=== PATIENT | female | born 1950 | race Caucasian/White ===

== ENCOUNTER 2017-01-18 12:53 | Inpatient (IN) | payer OTHER ==
[2017-01-18] VITALS (14 sets, daily range): BP systolic 109–139; BP diastolic 35–71
[~2017-01-18] VITALS: Ht 175.3 cm; Wt 90.1 kg
[~2017-01-18 12:53] MED LIST: LIPITOR20 MG PO; PERCOCET 10/1 TABLET PO; Synthroid; hydrochlorothiazide; spironolactone
[2017-01-18 14:54] LABS: HEMATOCRIT 18.5 % (36.0-46.0); MCH 19.7 PG (29.0-34.0); MCHC 31.4 G/DL (30.0-36.0); MCV 62.9 FL (83-99); RBC DIS.WIDTH-CV 18.7 % (11.8-14.6); RBC DIS.WIDTH-SD 40.7 % (39-53); RED BLOOD COUNT 2.94 M/uL (3.80-5.20)
[2017-01-18 14:55] LABS: WHITE BLOOD COUNT 70.6 K/uL (4.1-10.2)
[2017-01-18 14:56] LABS: ADD MIUA? YES; BILIRUBIN NEGATIVE; BLOOD NEGATIVE; COLOR AMBER ((YELLOW)); GLUCOSE (STRIP) NEGATIVE; KETONES NEGATIVE; LEUKOCYTES NEGATIVE; NITRITE NEGATIVE; PROTEIN (STRIP) 30; UROBILINOGEN 0.2 MG/DL (0.2-1.0)
[2017-01-18 14:56] LABS: DELETE MACHINE DIFF? YES
[2017-01-18 14:57] LABS: CHLORIDE 95 mEq/L (99-109); POTASSIUM 5.6 mEq/L (3.7-5.4); SODIUM 127 mEq/L (136-147)
[2017-01-18 14:59] LABS: GLUCOSE 106 mg/dL (70-99)
[2017-01-18 15:00] LABS: ANION GAP 23 MEQ/L (2-14)
[2017-01-18 15:01] LABS: TOTAL BILIRUBIN 0.5 mg/dL (0.0-1.0)
[2017-01-18 15:02] LABS: BACTERIA RARE /HPF; EPITHELIAL CELLS NONE SEEN /HPF; MUCUS NONE SEEN /LPF; RED BLOOD CELLS 0-5 /HPF (0-5); UCUL ADDED? NO; UNCLASSIFIED CASTS 0-5 /LPF; WHITE BLOOD CELLS 0-5 /HPF (0-5)
[2017-01-18 15:02] LABS: ALKALINE PHOSPHATASE 204 IU/L (3-129)
[2017-01-18 15:03] LABS: GFR ESTIMATE (CALCULATED) 5 mL/min/
[2017-01-18 15:07] LABS: UREA NITROGEN (BUN) 140 mg/dL (9-23)
[2017-01-18 15:09] LABS: TROP-I INTERPRETATION NEGATIVE; TROPONIN-I 0.01 ng/mL (0.0-0.30)
[2017-01-18 15:47] LABS: BASE EXCESS -17.2 mEq/L (-3 to +3); PCO2 23 mm Hg (35-45); PO2 110 mm Hg (80-100)
[2017-01-18 15:51] LABS: COMMENTS - BLOOD GASES C+; HEMOGLOBIN 7.3 (11.9-15.5); MODE ROOM AIR; O2 SATURATION (CALCULATED) 97.5 % (95-99); SITE RB
[2017-01-18 15:52] LABS: CARBOXY HGB 1.2 % (0-5); METHEMOGLOBIN 2.1 % (0-1.5)
[2017-01-18 16:00] LABS: ABS NEUTROPHIL COUNT 60.71; ANISOCYTOSIS 3+; BAND NEUTROPHILS 13.5 % (0-8.0); BURR CELLS 2+; HEMATOLOGY COMMENT 1 UNABLE TO REPORT; LYMPHOCYTES 5.5 % (15.0-45.0); MYELOCYTES 0.5 %; NUCLEATED RBC'S 2.5; OVALOCYTES 1+; PLATELET CLUMPS PRESENT - PLATELET COUNT APPEARS INCREASED; POLYCHROMASIA OCC; SCHISTOCYTES 1+; SEG.NEUTROPHILS 72.5 % (46.0-76.0); TEAR DROP CELLS 1+; USER ID WCD
[2017-01-18 16:59] LABS: CREATINE KINASE 478 IU/L (1-294)
[2017-01-18] MEDS ORDERED: KLOR-CON M1010 MEQ PO (18:37)
[2017-01-18] MEDS ORDERED: SPIRONOLACTONE50 MG PO (18:37)
[2017-01-18] MEDS ORDERED: HYDROCHLOROTHIA25 MG PO (18:37)
[2017-01-18 18:46] LABS: MAGNESIUM 3.2 mg/dL (1.3-2.7)
[2017-01-18 18:53] LABS: DIRECT BILIRUBIN 0.2 mg/dL (0.0-0.3); URIC ACID 18.4 mg/dL (3.1-9.2)
[2017-01-18 18:57] LABS: METH RESISTANT S AUREUS PCR NEGATIVE (NEGATIVE)
[2017-01-18 19:05] LABS: PROBE CHECK PASS; SPECIMEN PROCESSING CONTROL PASS
[2017-01-18 19:10] LABS: LACTATE DEHYDROGENASE 547 IU/L (20-246)
[2017-01-18 19:11] LABS: INTER. NORMALIZED RATIO 1.3; PROTHROMBIN TIME 13.4 (9.2-11.2); PTT 27.9 (25-32)
[2017-01-18 19:31] LABS: C3 COMPLEMENT 152 MG/DL (58-170); C4 COMPLEMENT 46 MG/DL (10-40)
[2017-01-18 20:47] LABS: IRON 17 MCG/DL (35-150)
[2017-01-18 22:31] LABS: UR CREATININE CONCENTRATION 113.6 MG/DL
[2017-01-19] VITALS (26 sets, daily range): BP systolic 110–156; BP diastolic 46–73
[2017-01-19 00:22] LABS: POINT-OF-CARE METER ID UU13113748
[2017-01-19 01:28] LABS: HEMATOCRIT 20.5 % (36.0-46.0); MCH 23.6 PG (29.0-34.0); MCHC 34.1 G/DL (30.0-36.0); MEAN PLAT.VOLUME 9.5 uM^3 (9.5-12.4); PLATELET COUNT 478 K/uL (156-360); RBC DIS.WIDTH-CV 24.7 % (11.8-14.6); RBC DIS.WIDTH-SD 57.3 % (39-53); RED BLOOD COUNT 2.96 M/uL (3.80-5.20)
[2017-01-19 01:29] LABS: MCV 69.3 FL (83-99); WHITE BLOOD COUNT 55.5 K/uL (4.1-10.2)
[2017-01-19 01:32] LABS: CHLORIDE 103 mEq/L (99-109); SODIUM 132 mEq/L (136-147)
[2017-01-19 01:35] LABS: GLUCOSE 113 mg/dL (70-99)
[2017-01-19 01:36] LABS: ANION GAP 18 MEQ/L (2-14)
[2017-01-19 01:37] LABS: TOTAL BILIRUBIN 0.5 mg/dL (0.0-1.0)
[2017-01-19 01:38] LABS: ALKALINE PHOSPHATASE 166 IU/L (3-129)
[2017-01-19 01:46] LABS: GFR ESTIMATE (CALCULATED) 7 mL/min/; POTASSIUM 3.9 mEq/L (3.7-5.4)
[2017-01-19 01:47] LABS: MAGNESIUM 2.6 mg/dL (1.3-2.7)
[2017-01-19 01:54] LABS: UREA NITROGEN (BUN) 125 mg/dL (9-23)
[2017-01-19 05:22] LABS: POINT-OF-CARE METER ID UU13113748
[2017-01-19 05:34] LABS: MEAN PLAT.VOLUME 9.4 uM^3 (9.5-12.4); NRBC (%) 0.8 /100 WBC (0-0); PLATELET COUNT 403 K/uL (156-360)
[2017-01-19 06:11] LABS: ANION GAP 24 MEQ/L (2-14); CHLORIDE 99 MEQ/L (99-109); GFR ESTIMATE (CALCULATED) 8 mL/min/; GLUCOSE 96 mg/dL (70-99); MAGNESIUM 2.8 mg/dl (1.3-2.7); POTASSIUM 3.3 MEQ/L (3.7-5.4); SAMPLE HEMOLYSIS CHECK 0; SAMPLE ICTERIC CHECK 0; SAMPLE LIPEMIA CHECK 0; SODIUM 134 MEQ/L (136-147)
[2017-01-19 06:12] LABS: UREA NITROGEN (BUN) 128 mg/dL (9-23)
[2017-01-19 06:50] LABS: DELETE MACHINE DIFF? YES
[2017-01-19 06:51] LABS: HEMATOCRIT 21.3 % (36.0-46.0); MCHC 33.3 G/DL (30.0-36.0); MCV 68.9 FL (83-99); RBC DIS.WIDTH-CV 23.9 % (11.8-14.6); RBC DIS.WIDTH-SD 59.4 % (39-53); RED BLOOD COUNT 3.09 M/uL (3.80-5.20)
[2017-01-19 07:02] LABS: ABS NEUTROPHIL COUNT 44.35; ANISOCYTOSIS 2+; HYPOCHROMASIA 3+; MACROCYTES 1+; MICROCYTOSIS OCC; MYELOCYTES 1.5 %; NUCLEATED RBC'S 1.5; OVALOCYTES OCC; PLAT.SUFFICIENCY INCREASED; SPHEROCYTES 1+; USER ID TLW
[2017-01-19 07:18] LABS: WHITE BLOOD COUNT 47.2 K/uL (4.1-10.2)
[2017-01-19 10:17] LABS: BASE EXCESS -7.9 mEq/L (-3 to +3); CARBOXY HGB 1.3 % (0-5); PCO2 25 mm Hg (35-45); PO2 92 mm Hg (80-100)
[2017-01-19 10:18] LABS: BICARBONATE 15.8 mEq/L (22-26); COMMENTS - BLOOD GASES A+C+; FI02 21 %; SITE LR; pH 7.41 (7.35-7.45)
[2017-01-19 10:19] LABS: TOTAL RESP RATE 16 resp/min
[2017-01-19 12:26] LABS: POINT-OF-CARE METER ID UU13113803
[2017-01-19 17:40] LABS: POINT-OF-CARE METER ID UU13113803
[2017-01-19 18:36] LABS: ANION GAP 16 MEQ/L (2-14); CHLORIDE 101 MEQ/L (99-109); MAGNESIUM 2.5 mg/dl (1.3-2.7); POTASSIUM 2.7 MEQ/L (3.7-5.4); SAMPLE HEMOLYSIS CHECK 0; SAMPLE ICTERIC CHECK 0; SAMPLE LIPEMIA CHECK 0; SODIUM 139 MEQ/L (136-147)
[2017-01-19 18:42] LABS: GLUCOSE 119 mg/dL (70-99); UREA NITROGEN (BUN) 100 mg/dL (9-23)
[2017-01-19 18:47] LABS: GFR ESTIMATE (CALCULATED) 14 mL/min/
[2017-01-20] VITALS (18 sets, daily range): BP systolic 112–150; BP diastolic 41–58
[2017-01-20 02:45] LABS: CHLORIDE 105 mEq/L (99-109); POTASSIUM 2.5 mEq/L (3.7-5.4); SODIUM 143 mEq/L (136-147)
[2017-01-20 02:46] LABS: GLUCOSE 95 mg/dL (70-99)
[2017-01-20 02:48] LABS: ANION GAP 14 MEQ/L (2-14)
[2017-01-20 02:50] LABS: GFR ESTIMATE (CALCULATED) 21 mL/min/
[2017-01-20 02:51] LABS: UREA NITROGEN (BUN) 86 mg/dL (9-23)
[2017-01-20 05:57] LABS: MEAN PLAT.VOLUME 9.4 uM^3 (9.5-12.4); PLATELET COUNT 309 K/uL (156-360)
[2017-01-20 06:21] LABS: ANION GAP 15 MEQ/L (2-14); CHLORIDE 102 MEQ/L (99-109); GFR ESTIMATE (CALCULATED) 22 mL/min/; GLUCOSE 92 mg/dL (70-99); MAGNESIUM 2.3 mg/dl (1.3-2.7); POTASSIUM 2.6 MEQ/L (3.7-5.4); SAMPLE HEMOLYSIS CHECK 0; SAMPLE ICTERIC CHECK 0; SAMPLE LIPEMIA CHECK 0; SODIUM 144 MEQ/L (136-147); UREA NITROGEN (BUN) 80 mg/dL (9-23)
[2017-01-20 07:55] LABS: HEMATOCRIT 23.2 % (36.0-46.0); MCH 22.9 PG (29.0-34.0); MCHC 33.2 G/DL (30.0-36.0); RBC DIS.WIDTH-SD 57.4 % (39-53); RED BLOOD COUNT 3.36 M/uL (3.80-5.20)
[2017-01-20 07:56] LABS: WHITE BLOOD COUNT 40.1 K/uL (4.1-10.2)
[2017-01-20 07:58] LABS: BASOPHIL COUNT 0.1 K/uL (0-0.1); EOSINOPHIL (%) 0 % (0-5); HEMATOLOGY COMMENT 1 SMEAR COMPATIBLE; IMMATURE GRANULOCYTE (%) 3.2 % (0.0-0.7); IMMATURE GRANULOCYTE COUNT 1.3 K/uL; LYMPHOCYTE COUNT 3.2 K/uL (1.0-2.8); MONOCYTE (%) 4.3 % (3-12); MONOCYTE COUNT 1.7 K/uL (0-0.8); NEUTROPHIL (%) 84.3 % (45-76); NEUTROPHIL COUNT 33.8 K/uL (1.8-6.4); PLAT.SUFFICIENCY ADEQUATE; USER ID TLW
[2017-01-20 17:02] LABS: ANION GAP 12 MEQ/L (2-14); CHLORIDE 106 MEQ/L (99-109); GLUCOSE 108 mg/dL (70-99); POTASSIUM 2.8 MEQ/L (3.7-5.4); SAMPLE HEMOLYSIS CHECK 0; SAMPLE ICTERIC CHECK 0; SAMPLE LIPEMIA CHECK 0; SODIUM 148 MEQ/L (136-147); UREA NITROGEN (BUN) 59 mg/dL (9-23)
[2017-01-20 17:03] LABS: GFR ESTIMATE (CALCULATED) 37 mL/min/; MAGNESIUM 1.9 mg/dl (1.3-2.7)
[2017-01-21] VITALS (8 sets, daily range): BP systolic 116–142; BP diastolic 42–67
[2017-01-21 05:48] LABS: MEAN PLAT.VOLUME 9.4 uM^3 (9.5-12.4); NRBC (%) 1.8 /100 WBC (0-0); PLATELET COUNT 227 K/uL (156-360)
[2017-01-21 06:15] LABS: BASOPHIL COUNT 0.1 K/uL (0-0.1); EOSINOPHIL (%) 0.1 % (0-5); HEMATOCRIT 22.3 % (36.0-46.0); IMMATURE GRANULOCYTE (%) 3.7 % (0.0-0.7); IMMATURE GRANULOCYTE COUNT 1.2 K/uL; LYMPHOCYTE COUNT 2.5 K/uL (1.0-2.8); MCH 23.9 PG (29.0-34.0); MCHC 32.7 G/DL (30.0-36.0); MCV 72.9 FL (83-99); NEUTROPHIL (%) 85.2 % (45-76); NEUTROPHIL COUNT 27.6 K/uL (1.8-6.4); RBC DIS.WIDTH-CV 22.8 % (11.8-14.6); RBC DIS.WIDTH-SD 59.6 % (39-53); RED BLOOD COUNT 3.06 M/uL (3.80-5.20)
[2017-01-21 06:20] LABS: WHITE BLOOD COUNT 32.3 K/uL (4.1-10.2)
[2017-01-21 06:31] LABS: ANISOCYTOSIS 1+; HEMATOLOGY COMMENT 1 REV; MACROCYTES 1+; MICROCYTOSIS FEW; OVALOCYTES FEW; PLAT.SUFFICIENCY ADEQUATE
[2017-01-21 06:38] LABS: ANION GAP 12 MEQ/L (2-14); CHLORIDE 108 MEQ/L (99-109); GLUCOSE 90 mg/dL (70-99); MAGNESIUM 1.9 mg/dl (1.3-2.7); POTASSIUM 3.3 MEQ/L (3.7-5.4); SAMPLE HEMOLYSIS CHECK 0; SAMPLE ICTERIC CHECK 0; SAMPLE LIPEMIA CHECK 0; SODIUM 148 MEQ/L (136-147); UREA NITROGEN (BUN) 39 mg/dL (9-23)
[2017-01-21 06:41] LABS: GFR ESTIMATE (CALCULATED) 59 mL/min/
[2017-01-21 13:03] LABS: POINT-OF-CARE METER ID UU13113748
[2017-01-21 18:46] LABS: ANION GAP 9 MEQ/L (2-14); CHLORIDE 108 MEQ/L (99-109); GFR ESTIMATE (CALCULATED) > 59 mL/min/; GLUCOSE 93 mg/dL (70-99); SAMPLE HEMOLYSIS CHECK 0; SAMPLE ICTERIC CHECK 0; SAMPLE LIPEMIA CHECK 0; SODIUM 142 MEQ/L (136-147); UREA NITROGEN (BUN) 30 mg/dL (9-23)
[2017-01-21 18:47] LABS: MAGNESIUM 1.6 mg/dl (1.3-2.7)
[2017-01-22] VITALS: BP 142/78
[2017-01-22 04:00] VITALS: BP 148/56
[2017-01-22 05:55] LABS: EOSINOPHIL (%) 0.1 % (0-5); HEMATOCRIT 23.4 % (36.0-46.0); IMMATURE GRANULOCYTE (%) 1.3 % (0.0-0.7); IMMATURE GRANULOCYTE COUNT 0.3 K/uL; LYMPHOCYTE COUNT 1.9 K/uL (1.0-2.8); MCH 23.7 PG (29.0-34.0); MCHC 30.8 G/DL (30.0-36.0); MONOCYTE (%) 3.5 % (3-12); MONOCYTE COUNT 0.8 K/uL (0-0.8); NEUTROPHIL (%) 86.7 % (45-76); NEUTROPHIL COUNT 19.8 K/uL (1.8-6.4); NRBC (%) 0.5 /100 WBC (0-0); PLATELET COUNT 196 K/uL (156-360); RBC DIS.WIDTH-SD 64.1 % (39-53); RED BLOOD COUNT 3.04 M/uL (3.80-5.20); WHITE BLOOD COUNT 22.9 K/uL (4.1-10.2)
[2017-01-22 06:26] LABS: ANION GAP 10 MEQ/L (2-14); CHLORIDE 108 MEQ/L (99-109); GFR ESTIMATE (CALCULATED) > 59 mL/min/; GLUCOSE 94 mg/dL (70-99); MAGNESIUM 1.5 mg/dl (1.3-2.7); POTASSIUM 3.6 MEQ/L (3.7-5.4); SAMPLE HEMOLYSIS CHECK 0; SAMPLE ICTERIC CHECK 0; SAMPLE LIPEMIA CHECK 0; SODIUM 142 MEQ/L (136-147); UREA NITROGEN (BUN) 28 mg/dL (9-23)
[2017-01-22 06:27] LABS: VANCOMYCIN, TROUGH 7.3 MCG/ML (10-20)
[2017-01-22 08:00] VITALS: BP 137/59
[2017-01-22 12:00] VITALS: BP 160/79
[2017-01-22 16:00] VITALS: BP 126/54
[2017-01-22 20:00] VITALS: BP 160/79
[2017-01-23] VITALS (10 sets, daily range): BP systolic 117–155; BP diastolic 47–66
[2017-01-23 05:05] LABS: EOSINOPHIL (%) 0.5 % (0-5); EOSINOPHIL COUNT 0.1 K/uL (0-0.3); HEMATOCRIT 22.3 % (36.0-46.0); IMMATURE GRANULOCYTE (%) 0.4 % (0.0-0.7); IMMATURE GRANULOCYTE COUNT 0.9 K/uL; LYMPHOCYTE COUNT 1.5 K/uL (1.0-2.8); MCH 23.8 PG (29.0-34.0); MCV 79.1 FL (83-99); MEAN PLAT.VOLUME 9.9 uM^3 (9.5-12.4); MONOCYTE (%) 3.4 % (3-12); MONOCYTE COUNT 0.7 K/uL (0-0.8); NEUTROPHIL (%) 88.7 % (45-76); PLATELET COUNT 218 K/uL (156-360); RBC DIS.WIDTH-CV 24.6 % (11.8-14.6); RBC DIS.WIDTH-SD 64.8 % (39-53); RED BLOOD COUNT 2.82 M/uL (3.80-5.20); WHITE BLOOD COUNT 21.5 K/uL (4.1-10.2)
[2017-01-23 05:06] LABS: CHLORIDE 109 mEq/L (99-109); POTASSIUM 3.2 mEq/L (3.7-5.4); SODIUM 140 mEq/L (136-147)
[2017-01-23 05:08] LABS: GLUCOSE 86 mg/dL (70-99)
[2017-01-23 05:10] LABS: ANION GAP 8 MEQ/L (2-14)
[2017-01-23 05:11] LABS: MAGNESIUM 0.9 mg/dL (1.3-2.7)
[2017-01-23 05:12] LABS: GFR ESTIMATE (CALCULATED) > 59 mL/min/
[2017-01-23 05:13] LABS: UREA NITROGEN (BUN) 19 mg/dL (9-23)
[2017-01-23 08:02] LABS: HEMATOCRIT 25.8 % (36.0-46.0); MCV 79.4 FL (83-99)
[2017-01-23 19:34] LABS: HEMATOCRIT 25.2 % (36.0-46.0); MCV 79.7 FL (83-99)
[2017-01-24] VITALS (9 sets, daily range): BP systolic 0–155; BP diastolic 0–92
[2017-01-24 00:42] LABS: HAPTOGLOBIN+ 533 mg/dL (43-212)
[2017-01-24 09:09] LABS: HEMATOCRIT 25.8 % (36.0-46.0); MCH 24.6 PG (29.0-34.0); MCHC 30.6 G/DL (30.0-36.0); MCV 80.4 FL (83-99); PLATELET COUNT 178 K/uL (156-360); RBC DIS.WIDTH-CV 23.8 % (11.8-14.6); RBC DIS.WIDTH-SD 66.9 % (39-53); RED BLOOD COUNT 3.21 M/uL (3.80-5.20); WHITE BLOOD COUNT 17.8 K/uL (4.1-10.2)
[2017-01-24 09:19] LABS: EOSINOPHIL (%) 0.8 % (0-5); EOSINOPHIL COUNT 0.2 K/uL (0-0.3); IMMATURE GRANULOCYTE (%) 0.6 % (0.0-0.7); IMMATURE GRANULOCYTE COUNT 0.1 K/uL; LYMPHOCYTE COUNT 1.6 K/uL (1.0-2.8); MONOCYTE (%) 3.3 % (3-12); MONOCYTE COUNT 0.6 K/uL (0-0.8); NEUTROPHIL (%) 86.4 % (45-76); NEUTROPHIL COUNT 15.4 K/uL (1.8-6.4)
[2017-01-24 11:53] LABS: ANION GAP 9 MEQ/L (2-14); CHLORIDE 107 MEQ/L (99-109); GFR ESTIMATE (CALCULATED) > 59 mL/min/; GLUCOSE 80 mg/dL (70-99); SAMPLE HEMOLYSIS CHECK 0; SAMPLE ICTERIC CHECK 0; SAMPLE LIPEMIA CHECK 0; SODIUM 141 MEQ/L (136-147); UREA NITROGEN (BUN) 13 mg/dL (9-23)
[2017-01-24 11:54] LABS: MAGNESIUM 1.9 mg/dl (1.3-2.7)
[2017-01-25] VITALS: BP 137/63
[2017-01-25 04:00] VITALS: BP 139/65
[2017-01-25 06:34] LABS: HEMATOCRIT 26.6 % (36.0-46.0); MCH 23.8 PG (29.0-34.0); MCHC 29.7 G/DL (30.0-36.0); MCV 80.1 FL (83-99); MEAN PLAT.VOLUME 10.3 uM^3 (9.5-12.4); PLATELET COUNT 222 K/uL (156-360); RBC DIS.WIDTH-CV 24.1 % (11.8-14.6); RBC DIS.WIDTH-SD 68.8 % (39-53); RED BLOOD COUNT 3.32 M/uL (3.80-5.20); WHITE BLOOD COUNT 13.5 K/uL (4.1-10.2)
[2017-01-25 07:22] LABS: ANION GAP 9 MEQ/L (2-14); CHLORIDE 107 MEQ/L (99-109); GFR ESTIMATE (CALCULATED) > 59 mL/min/; GLUCOSE 79 mg/dL (70-99); MAGNESIUM 1.8 mg/dl (1.3-2.7); SAMPLE HEMOLYSIS CHECK 0; SAMPLE ICTERIC CHECK 0; SAMPLE LIPEMIA CHECK 0; SODIUM 140 MEQ/L (136-147); UREA NITROGEN (BUN) 12 mg/dL (9-23)
[2017-01-25 07:33] LABS: POTASSIUM 3.8 MEQ/L (3.7-5.4)
[2017-01-25 07:43] LABS: EOSINOPHIL (%) 1.7 % (0-5); EOSINOPHIL COUNT 0.2 K/uL (0-0.3); HEMATOLOGY COMMENT 1 SMEAR COMPATIBLE; IMMATURE GRANULOCYTE (%) 0.4 % (0.0-0.7); IMMATURE GRANULOCYTE COUNT 0.1 K/uL; LYMPHOCYTE COUNT 1.5 K/uL (1.0-2.8); MONOCYTE (%) 2.3 % (3-12); MONOCYTE COUNT 0.3 K/uL (0-0.8); NEUTROPHIL (%) 84.4 % (45-76); NEUTROPHIL COUNT 11.4 K/uL (1.8-6.4); PLAT.SUFFICIENCY ADEQUATE; USER ID STC
[2017-01-25 08:00] VITALS: BP 142/70
[2017-01-25 12:30] VITALS: BP 122/64
[2017-01-25 19:36] VITALS: BP 123/59
[2017-01-26 00:08] VITALS: BP 135/65
[2017-01-26 00:54] VITALS: BP 139/62
[2017-01-26 06:37] LABS: HEMATOCRIT 24.4 % (36.0-46.0); MCH 25.1 PG (29.0-34.0); MCHC 31.1 G/DL (30.0-36.0); MCV 80.5 FL (83-99); MEAN PLAT.VOLUME 10.3 uM^3 (9.5-12.4); PLATELET COUNT 229 K/uL (156-360); RBC DIS.WIDTH-CV 24.4 % (11.8-14.6); RBC DIS.WIDTH-SD 70.6 % (39-53); RED BLOOD COUNT 3.03 M/uL (3.80-5.20); WHITE BLOOD COUNT 10.1 K/uL (4.1-10.2)
[2017-01-26 06:52] LABS: EOSINOPHIL (%) 2.4 % (0-5); EOSINOPHIL COUNT 0.2 K/uL (0-0.3); IMMATURE GRANULOCYTE (%) 0.3 % (0.0-0.7); LYMPHOCYTE COUNT 1.2 K/uL (1.0-2.8); MONOCYTE (%) 4.3 % (3-12); MONOCYTE COUNT 0.4 K/uL (0-0.8); NEUTROPHIL (%) 80.7 % (45-76); NEUTROPHIL COUNT 8.2 K/uL (1.8-6.4)
[2017-01-26 07:04] LABS: ANION GAP 7 MEQ/L (2-14); CHLORIDE 106 MEQ/L (99-109); GFR ESTIMATE (CALCULATED) 59 mL/min/; GLUCOSE 88 mg/dL (70-99); POTASSIUM 3.6 MEQ/L (3.7-5.4); SAMPLE HEMOLYSIS CHECK 0; SAMPLE ICTERIC CHECK 0; SAMPLE LIPEMIA CHECK 0; SODIUM 138 MEQ/L (136-147); UREA NITROGEN (BUN) 13 mg/dL (9-23)
[2017-01-26 07:09] LABS: MAGNESIUM 1.5 mg/dl (1.3-2.7)
[2017-01-26 07:59] VITALS: BP 145/65
[2017-01-26 15:00] VITALS: BP 153/64
[2017-01-26 23:02] VITALS: BP 151/68
[2017-01-27 06:26] LABS: HEMATOCRIT 25.3 % (36.0-46.0); MCH 24.6 PG (29.0-34.0); MCHC 30.4 G/DL (30.0-36.0); MCV 80.8 FL (83-99); MEAN PLAT.VOLUME 10.4 uM^3 (9.5-12.4); PLATELET COUNT 287 K/uL (156-360); RBC DIS.WIDTH-CV 24.5 % (11.8-14.6); RBC DIS.WIDTH-SD 72.3 % (39-53); RED BLOOD COUNT 3.13 M/uL (3.80-5.20); WHITE BLOOD COUNT 8.8 K/uL (4.1-10.2)
[2017-01-27 06:53] LABS: ANION GAP 8 MEQ/L (2-14); CHLORIDE 105 MEQ/L (99-109); GFR ESTIMATE (CALCULATED) 59 mL/min/; GLUCOSE 77 mg/dL (70-99); MAGNESIUM 1.5 mg/dl (1.3-2.7); POTASSIUM 3.7 MEQ/L (3.7-5.4); SAMPLE HEMOLYSIS CHECK 0; SAMPLE ICTERIC CHECK 0; SAMPLE LIPEMIA CHECK 0; SODIUM 137 MEQ/L (136-147); UREA NITROGEN (BUN) 11 mg/dL (9-23)
[2017-01-27 06:54] LABS: EOSINOPHIL (%) 2.4 % (0-5); EOSINOPHIL COUNT 0.2 K/uL (0-0.3); IMMATURE GRANULOCYTE (%) 0.3 % (0.0-0.7); LYMPHOCYTE COUNT 1.2 K/uL (1.0-2.8); MONOCYTE (%) 4.3 % (3-12); MONOCYTE COUNT 0.4 K/uL (0-0.8); NEUTROPHIL (%) 79.2 % (45-76)
[2017-01-27 08:09] VITALS: BP 127/70
[2017-01-27 16:42] VITALS: BP 118/52
[2017-01-27 23:08] VITALS: BP 123/65
[2017-01-28 06:53] LABS: HEMATOCRIT 29.1 % (36.0-46.0); MCH 24.1 PG (29.0-34.0); MCHC 29.9 G/DL (30.0-36.0); MCV 80.6 FL (83-99); RBC DIS.WIDTH-CV 24.4 % (11.8-14.6); RBC DIS.WIDTH-SD 71.9 % (39-53); RED BLOOD COUNT 3.61 M/uL (3.80-5.20); WHITE BLOOD COUNT 7.9 K/uL (4.1-10.2)
[2017-01-28 07:24] LABS: ANION GAP 9 MEQ/L (2-14); CHLORIDE 104 MEQ/L (99-109); GFR ESTIMATE (CALCULATED) 59 mL/min/; GLUCOSE 72 mg/dL (70-99); MAGNESIUM 1.3 mg/dl (1.3-2.7); POTASSIUM 3.9 MEQ/L (3.7-5.4); SAMPLE HEMOLYSIS CHECK 0; SAMPLE ICTERIC CHECK 0; SAMPLE LIPEMIA CHECK 0; SODIUM 136 MEQ/L (136-147); UREA NITROGEN (BUN) 10 mg/dL (9-23)
[2017-01-28 07:32] LABS: EOSINOPHIL (%) 2.3 % (0-5); EOSINOPHIL COUNT 0.2 K/uL (0-0.3); IMMATURE GRANULOCYTE (%) 0.3 % (0.0-0.7); LYMPHOCYTE COUNT 1.5 K/uL (1.0-2.8); MEAN PLAT.VOLUME 10.2 uM^3 (9.5-12.4); MONOCYTE (%) 3.7 % (3-12); MONOCYTE COUNT 0.3 K/uL (0-0.8); NEUTROPHIL COUNT 5.8 K/uL (1.8-6.4)
[2017-01-28 07:38] LABS: PLATELET COUNT 381 K/uL (156-360)
[2017-01-28 10:30] VITALS: BP 120/65
[2017-01-28 15:25] VITALS: BP 112/52
[2017-01-28 23:08] VITALS: BP 106/53
[2017-01-29 07:46] LABS: EOSINOPHIL (%) 3.5 % (0-5); EOSINOPHIL COUNT 0.2 K/uL (0-0.3); HEMATOCRIT 30.6 % (36.0-46.0); IMMATURE GRANULOCYTE (%) 0.2 % (0.0-0.7); LYMPHOCYTE COUNT 1.2 K/uL (1.0-2.8); MCH 23.7 PG (29.0-34.0); MCHC 29.4 G/DL (30.0-36.0); MCV 80.5 FL (83-99); MONOCYTE (%) 3.1 % (3-12); MONOCYTE COUNT 0.2 K/uL (0-0.8); NEUTROPHIL COUNT 3.5 K/uL (1.8-6.4); PLATELET COUNT 424 K/uL (156-360); RBC DIS.WIDTH-CV 24.6 % (11.8-14.6); RBC DIS.WIDTH-SD 71.9 % (39-53)
[2017-01-29 07:52] LABS: WHITE BLOOD COUNT 5.1 K/uL (4.1-10.2)
[2017-01-29 07:55] VITALS: BP 92/52
[2017-01-29 08:06] LABS: ANION GAP 9 MEQ/L (2-14); CHLORIDE 104 MEQ/L (99-109); GFR ESTIMATE (CALCULATED) 53 mL/min/; GLUCOSE 63 mg/dL (70-99); MAGNESIUM 1.3 mg/dl (1.3-2.7); SAMPLE HEMOLYSIS CHECK 0; SAMPLE ICTERIC CHECK 0; SAMPLE LIPEMIA CHECK 0; SODIUM 136 MEQ/L (136-147); UREA NITROGEN (BUN) 10 mg/dL (9-23)
[2017-01-29 15:35] VITALS: BP 110/52
[2017-01-30 08:00] VITALS: BP 124/52
[2017-01-30 09:27] LABS: HEMATOCRIT 27.6 % (36.0-46.0); MCH 25.7 PG (29.0-34.0); MCHC 31.5 G/DL (30.0-36.0); MCV 81.4 FL (83-99); MEAN PLAT.VOLUME 10.2 uM^3 (9.5-12.4); PLATELET COUNT 404 K/uL (156-360); RBC DIS.WIDTH-CV 24.8 % (11.8-14.6); RBC DIS.WIDTH-SD 73.4 % (39-53); RED BLOOD COUNT 3.39 M/uL (3.80-5.20); WHITE BLOOD COUNT 4.2 K/uL (4.1-10.2)
[2017-01-30 09:46] LABS: EOSINOPHIL (%) 6.2 % (0-5); EOSINOPHIL COUNT 0.3 K/uL (0-0.3); IMMATURE GRANULOCYTE (%) 0.2 % (0.0-0.7); LYMPHOCYTE COUNT 1.4 K/uL (1.0-2.8); MONOCYTE (%) 4.8 % (3-12); MONOCYTE COUNT 0.2 K/uL (0-0.8); NEUTROPHIL (%) 54.9 % (45-76); NEUTROPHIL COUNT 2.3 K/uL (1.8-6.4)
[2017-01-30 10:12] LABS: ANION GAP 8 MEQ/L (2-14); CHLORIDE 102 MEQ/L (99-109); GFR ESTIMATE (CALCULATED) 59 mL/min/; GLUCOSE 63 mg/dL (70-99); MAGNESIUM 1.3 mg/dl (1.3-2.7); SAMPLE HEMOLYSIS CHECK 0; SAMPLE ICTERIC CHECK 0; SAMPLE LIPEMIA CHECK 0; SODIUM 133 MEQ/L (136-147); UREA NITROGEN (BUN) 10 mg/dL (9-23)
[2017-01-30] MEDS ORDERED: DAKINS SOLUTIO473 ML TP (14:33)
[2017-01-30] MEDS ORDERED: AMOX TR-K CLV1 EAC4 PO (14:33)
[2017-01-30] MEDS ORDERED: HYDROCORTISON28.4 GM TP (14:33)
[2017-01-30] MEDS ORDERED: OXYCODONE-APAP1 EACH PO (14:33)
[2017-01-30] MEDS ORDERED: PANTOPRAZOLE SO40 MG PO (14:33)
[2017-01-30] MEDS ORDERED: BENADRYL25 MG PO (14:33)
[2017-01-30 16:30] VITALS: BP 110/60
== END 2017-01-30 17:29 | DRG 871 ==
LOC: EME → EDBD 12:53 → 4WEST 17:08 → 4EAST 17:08 → 5EAST 17:08 → EDOF 17:08 → 5EAST 17:08 → 4WEST 17:17 → 4EAST 01-24 20:43 → 5EAST 01-25 18:42
PROVIDERS: Emergency Medicine; Hospitalist; Internal Medicine; Internal Medicine Critical Care Medicine; Internal Medicine Gastroenterology; Internal Medicine Nephrology
PROC: 30233N1 Transfusion of Nonautologous Red Blood Cells into Peripheral Vein, Percutaneous Approach (ICD-10-PCS; principal; 2017-01-18)
PROC: 0DBK8ZX Excision of Ascending Colon, Via Natural or Artificial Opening Endoscopic, Diagnostic (ICD-10-PCS; 2017-01-24)
DX: A40.8 Other streptococcal sepsis (principal); L03.115 Cellulitis of right lower limb; L03.116 Cellulitis of left lower limb; G93.41 Metabolic encephalopathy; E87.2 Acidosis; N17.9 Acute kidney failure, unspecified; E87.1 Hypo-osmolality and hyponatremia; E87.0 Hyperosmolality and hypernatremia; L97.322 Non-pressure chronic ulcer of left ankle with fat layer exposed; L97.312 Non-pressure chronic ulcer of right ankle with fat layer exposed; D62 Acute posthemorrhagic anemia; K63.3 Ulcer of intestine; K92.1 Melena; R65.20 Severe sepsis without septic shock; E87.5 Hyperkalemia; E86.0 Dehydration; E87.6 Hypokalemia; E83.39 Other disorders of phosphorus metabolism; E83.42 Hypomagnesemia; L97.529 Non-pressure chronic ulcer of other part of left foot with unspecified severity; L97.519 Non-pressure chronic ulcer of other part of right foot with unspecified severity; I87.8 Other specified disorders of veins; K21.9 Gastro-esophageal reflux disease without esophagitis; I89.8 Other specified noninfective disorders of lymphatic vessels and lymph nodes; I89.0 Lymphedema, not elsewhere classified; I12.9 Hypertensive chronic kidney disease with stage 1 through stage 4 chronic kidney disease, or unspecified chronic kidney disease; N18.9 Chronic kidney disease, unspecified; D63.8 Anemia in other chronic diseases classified elsewhere; E03.9 Hypothyroidism, unspecified; E66.9 Obesity, unspecified; Z23 Encounter for immunization; Z88.0 Allergy status to penicillin; Z88.1 Allergy status to other antibiotic agents; Z91.041 Radiographic dye allergy status; Z86.14 Personal history of Methicillin resistant Staphylococcus aureus infection; Z86.19 Personal history of other infectious and parasitic diseases; Z85.41 Personal history of malignant neoplasm of cervix uteri; Z68.30 Body mass index [BMI] 30.0-30.9, adult; L27.0 Generalized skin eruption due to drugs and medicaments taken internally
CPT/HCPCS: 36600; 70450; 71020; 73590; 73630; 74176; 80048; 80048 91; 80053; 80069; 80202; 81003; 82248; 82272; 82330; 82550; 82570; 82607; 82746; 82803; 82948; 83010 90; 83540; 83605; 83615; 83735; 83880; 84100; 84156; 84300; 84439; 84443; 84466; 84484; 84550; 85014; 85018; 85025; 85027; 85610; 85730; 86160; 86162 90; 86850; 86860; 86870; 86880; 86900; 86901; 86920; 87040; 87070; 87075; 87076; 87077; 87147; 87185; 87186; 87205; 87641; 88305; 92526 GN; 92610 GN; 93005; 97530 GO; 99202; 99281; 99285; C9113; J0881; J1170; J1200; J1644; J1650; J1756; J1815; J2250; J2270; J2543; J3010; J3370; J3475; J3480; J7030; J7040; J7050; J7070; J7120; P9016

== ENCOUNTER 2017-04-13 14:59 | Inpatient (IN) | payer OTHER ==
[~2017-04-13] VITALS: Ht 175.3 cm; Wt 76.3 kg
[~2017-04-13 14:59] MED LIST changes: +AMOX TR-K CLV1 EAC4 PO; +BENADRYL25 MG PO; +DAKINS SOLUTIO473 ML TP; +HYDROCHLOROTHIA25 MG PO; +HYDROCORTISON28.4 GM TP; +KLOR-CON M1010 MEQ PO; +OXYCODONE-APAP1 EACH PO; +PANTOPRAZOLE SO40 MG PO; +SPIRONOLACTONE50 MG PO
[2017-04-13 16:07] LABS: EOSINOPHIL (%) 0 % (0-5); HEMATOCRIT 28.2 % (36.0-46.0); IMMATURE GRANULOCYTE (%) 0.6 % (0.0-0.7); IMMATURE GRANULOCYTE COUNT 0.1 K/uL; INSTRUMENT ABS NEUTROPHIL CT 13.2 K/uL; LYMPHOCYTE COUNT 1.5 K/uL (1.0-2.8); MCH 28.7 PG (29.0-34.0); MCHC 30.9 G/DL (30.0-36.0); MCV 93.1 FL (83-99); MEAN PLAT.VOLUME 10.6 uM^3 (9.5-12.4); MONOCYTE (%) 2.6 % (3-12); MONOCYTE COUNT 0.4 K/uL (0-0.8); NEUTROPHIL (%) 86.8 % (45-76); NEUTROPHIL COUNT 13.2 K/uL (1.8-6.4); PLATELET COUNT 262 K/uL (156-360); RBC DIS.WIDTH-CV 13.8 % (11.8-14.6); RBC DIS.WIDTH-SD 46.1 % (39-53); RED BLOOD COUNT 3.03 M/uL (3.80-5.20); WHITE BLOOD COUNT 15.2 K/uL (4.1-10.2)
[2017-04-13 16:20] LABS: CHLORIDE 100 mEq/L (99-109); POTASSIUM 3.2 mEq/L (3.7-5.4); SODIUM 134 mEq/L (136-147)
[2017-04-13 16:23] LABS: GLUCOSE 95 mg/dL (70-99)
[2017-04-13 16:24] LABS: ANION GAP 9 MEQ/L (2-14)
[2017-04-13 16:25] LABS: TOTAL BILIRUBIN 0.4 mg/dL (0.0-1.0)
[2017-04-13 16:26] LABS: ALKALINE PHOSPHATASE 72 IU/L (3-129); GFR ESTIMATE (CALCULATED) 48 mL/min/
[2017-04-13 16:27] LABS: UREA NITROGEN (BUN) 19 mg/dL (9-23)
[2017-04-13] MEDS ORDERED: PERCOCET 10/1 TABLET PO (18:31)
[2017-04-13] MEDS ORDERED: DAKINS SOLUTIO473 ML TP (18:32)
[2017-04-13] MEDS ORDERED: CALCIUM 500 MG1 EACH PO (18:32)
[2017-04-13] MEDS ORDERED: LEVOTHYROXINE125 MCG PO (18:33)
[2017-04-13 19:01] VITALS: BP 112/41
[2017-04-13 19:35] LABS: ADD MIUA? YES; BILIRUBIN NEGATIVE; BLOOD NEGATIVE; COLOR YELLOW ((YELLOW)); GLUCOSE (STRIP) NEGATIVE; KETONES NEGATIVE; LEUKOCYTES SMALL; NITRITE NEGATIVE; PROTEIN (STRIP) 30; SPECIFIC GRAVITY 1.013 (1.000-1.030); UROBILINOGEN 0.2 MG/DL (0.2-1.0)
[2017-04-13 19:45] LABS: BACTERIA RARE /HPF; EPITHELIAL CELLS 1+ /HPF; MUCUS TRACE /LPF; RED BLOOD CELLS 0-5 /HPF (0-5); UCUL ADDED? NO
[2017-04-13 20:00] VITALS: BP 113/44
[2017-04-13 21:00] VITALS: BP 98/39
[2017-04-13 22:00] VITALS: BP 92/40
[2017-04-13 22:28] VITALS: BP 128/65
[2017-04-14] VITALS (12 sets, daily range): BP systolic 102–132; BP diastolic 54–70
[2017-04-14 07:34] LABS: ANION GAP 8 MEQ/L (2-14); CHLORIDE 107 MEQ/L (99-109); GFR ESTIMATE (CALCULATED) > 59 mL/min/; GLUCOSE 81 mg/dL (70-99); POTASSIUM 3.4 MEQ/L (3.7-5.4); SAMPLE HEMOLYSIS CHECK 0; SAMPLE ICTERIC CHECK 0; SAMPLE LIPEMIA CHECK 0; SODIUM 139 MEQ/L (136-147); UREA NITROGEN (BUN) 16 mg/dL (9-23)
[2017-04-14 07:41] LABS: EOSINOPHIL (%) 1.2 % (0-5); EOSINOPHIL COUNT 0.1 K/uL (0-0.3); HEMATOCRIT 24.4 % (36.0-46.0); IMMATURE GRANULOCYTE (%) 0.3 % (0.0-0.7); INSTRUMENT ABS NEUTROPHIL CT 7.9 K/uL; LYMPHOCYTE COUNT 1.3 K/uL (1.0-2.8); MCH 29.1 PG (29.0-34.0); MCHC 30.7 G/DL (30.0-36.0); MCV 94.6 FL (83-99); MONOCYTE (%) 4.2 % (3-12); MONOCYTE COUNT 0.4 K/uL (0-0.8); NEUTROPHIL (%) 80.8 % (45-76); NEUTROPHIL COUNT 7.9 K/uL (1.8-6.4); RBC DIS.WIDTH-CV 14.1 % (11.8-14.6); RBC DIS.WIDTH-SD 48.3 % (39-53); RED BLOOD COUNT 2.58 M/uL (3.80-5.20)
[2017-04-14 07:42] LABS: WHITE BLOOD COUNT 9.8 K/uL (4.1-10.2)
[2017-04-14 08:11] LABS: MEAN PLAT.VOLUME 11.1 uM^3 (9.5-12.4)
[2017-04-14 08:12] LABS: PLAT.SUFFICIENCY DECREASED
[2017-04-14 08:17] LABS: PLATELET COUNT 177 K/uL (156-360)
[2017-04-14 13:49] LABS: HEMATOCRIT 23.5 % (36.0-46.0); MCV 94.4 FL (83-99)
[2017-04-14 22:07] LABS: HEMATOCRIT 26.3 % (36.0-46.0); MCV 92.3 FL (83-99)
[2017-04-15 03:14] VITALS: BP 135/76
[2017-04-15 07:05] LABS: EOSINOPHIL (%) 2.9 % (0-5); EOSINOPHIL COUNT 0.2 K/uL (0-0.3); HEMATOCRIT 25.7 % (36.0-46.0); IMMATURE GRANULOCYTE (%) 0.3 % (0.0-0.7); INSTRUMENT ABS NEUTROPHIL CT 5.4 K/uL; LYMPHOCYTE COUNT 1.8 K/uL (1.0-2.8); MCH 29.6 PG (29.0-34.0); MCHC 31.9 G/DL (30.0-36.0); MCV 92.8 FL (83-99); MEAN PLAT.VOLUME 10.9 uM^3 (9.5-12.4); MONOCYTE (%) 5.4 % (3-12); MONOCYTE COUNT 0.4 K/uL (0-0.8); NEUTROPHIL (%) 68.2 % (45-76); NEUTROPHIL COUNT 5.4 K/uL (1.8-6.4); PLATELET COUNT 197 K/uL (156-360); RBC DIS.WIDTH-CV 13.7 % (11.8-14.6); RBC DIS.WIDTH-SD 46.4 % (39-53); RED BLOOD COUNT 2.77 M/uL (3.80-5.20); WHITE BLOOD COUNT 7.8 K/uL (4.1-10.2)
[2017-04-15 07:17] VITALS: BP 125/57
[2017-04-15 07:31] LABS: ANION GAP 9 MEQ/L (2-14); CHLORIDE 107 MEQ/L (99-109); GFR ESTIMATE (CALCULATED) > 59 mL/min/; GLUCOSE 78 mg/dL (70-99); POTASSIUM 3.8 MEQ/L (3.7-5.4); SAMPLE HEMOLYSIS CHECK 1; SAMPLE ICTERIC CHECK 0; SAMPLE LIPEMIA CHECK 0; SODIUM 137 MEQ/L (136-147); UREA NITROGEN (BUN) 12 mg/dL (9-23)
[2017-04-15 10:45] VITALS: BP 108/72
[2017-04-15 19:39] VITALS: BP 139/63
[2017-04-15 23:14] VITALS: BP 125/66
[2017-04-16 03:56] VITALS: BP 138/60
[2017-04-16 07:52] VITALS: BP 133/62
[2017-04-16 11:00] VITALS: BP 129/72
[2017-04-16 15:00] VITALS: BP 134/72
[2017-04-17 00:08] VITALS: BP 135/65
[2017-04-17 07:24] VITALS: BP 137/68
[2017-04-17 15:15] VITALS: BP 135/72
[2017-04-17 23:00] VITALS: BP 122/58
[2017-04-18 06:58] VITALS: BP 118/65
[2017-04-18 07:43] LABS: HEMATOCRIT 27.6 % (36.0-46.0); MCH 28.5 PG (29.0-34.0); MCHC 30.8 G/DL (30.0-36.0); MCV 92.6 FL (83-99); MEAN PLAT.VOLUME 10.6 uM^3 (9.5-12.4); RBC DIS.WIDTH-CV 13.5 % (11.8-14.6); RBC DIS.WIDTH-SD 45.6 % (39-53); RED BLOOD COUNT 2.98 M/uL (3.80-5.20)
[2017-04-18 07:47] LABS: ANION GAP 8 MEQ/L (2-14); CHLORIDE 108 MEQ/L (99-109); GFR ESTIMATE (CALCULATED) > 59 mL/min/; GLUCOSE 71 mg/dL (70-99); POTASSIUM 3.9 MEQ/L (3.7-5.4); SAMPLE HEMOLYSIS CHECK 0; SAMPLE ICTERIC CHECK 0; SAMPLE LIPEMIA CHECK 0; SODIUM 141 MEQ/L (136-147); UREA NITROGEN (BUN) 10 mg/dL (9-23)
[2017-04-18 07:58] LABS: PLATELET COUNT 273 K/uL (156-360)
[2017-04-18 08:29] LABS: EOSINOPHIL (%) 5.9 % (0-5); EOSINOPHIL COUNT 0.4 K/uL (0-0.3); IMMATURE GRANULOCYTE (%) 0.3 % (0.0-0.7); INSTRUMENT ABS NEUTROPHIL CT 2.4 K/uL; LYMPHOCYTE COUNT 2.8 K/uL (1.0-2.8); MONOCYTE (%) 7.2 % (3-12); MONOCYTE COUNT 0.4 K/uL (0-0.8); NEUTROPHIL (%) 40.2 % (45-76); NEUTROPHIL COUNT 2.4 K/uL (1.8-6.4)
[2017-04-18] MEDS ORDERED: LEVAQUIN750 MG PO (11:41)
== END 2017-04-18 14:00 | disposition home health service (06) | DRG 871 ==
LOC: EME 14:59 → 5EAST 20:57 → EDOF 20:57 → 5EAST 22:18
PROVIDERS: Emergency Medicine; Hospitalist; Internal Medicine
PROC: 30233N1 Transfusion of Nonautologous Red Blood Cells into Peripheral Vein, Percutaneous Approach (ICD-10-PCS; principal; 2017-04-14)
DX: A41.52 Sepsis due to Pseudomonas (principal); R65.21 Severe sepsis with septic shock; N17.9 Acute kidney failure, unspecified; L03.116 Cellulitis of left lower limb; K55.9 Vascular disorder of intestine, unspecified; L03.115 Cellulitis of right lower limb; D63.8 Anemia in other chronic diseases classified elsewhere; K21.9 Gastro-esophageal reflux disease without esophagitis; I83.008 Varicose veins of unspecified lower extremity with ulcer other part of lower leg; L97.811 Non-pressure chronic ulcer of other part of right lower leg limited to breakdown of skin; L97.821 Non-pressure chronic ulcer of other part of left lower leg limited to breakdown of skin; I87.2 Venous insufficiency (chronic) (peripheral); R41.82 Altered mental status, unspecified; E03.9 Hypothyroidism, unspecified; G89.29 Other chronic pain; Z85.41 Personal history of malignant neoplasm of cervix uteri; I80.02 Phlebitis and thrombophlebitis of superficial vessels of left lower extremity; R59.0 Localized enlarged lymph nodes; Z88.0 Allergy status to penicillin; I12.9 Hypertensive chronic kidney disease with stage 1 through stage 4 chronic kidney disease, or unspecified chronic kidney disease; N18.9 Chronic kidney disease, unspecified; K59.00 Constipation, unspecified; K42.9 Umbilical hernia without obstruction or gangrene; E87.6 Hypokalemia
CPT/HCPCS: 36415; 73590; 80048; 80053; 80202; 81003; 82272; 83605; 84439; 84443; 85014; 85018; 85025; 86900; 86901; 86920; 87040; 87070; 87075; 87077; 87186; 87205; 93971; 99281; 99285; J0692; J1644; J1650; J2543; J3370; J7030; J7050; J7120; P9016

== ENCOUNTER → 2018-05-28 | Outpatient (CLI) | payer MEDICARE, OTHER ==
[~2018-05-28] MED LIST changes: +CALCIUM 500 MG1 EACH PO; +LEVAQUIN750 MG PO; +LEVOTHYROXINE125 MCG PO
== END | disposition home or self-care (01) ==
LOC: CDC 10:26
DX: Z01.810 Encounter for preprocedural cardiovascular examination (principal); I70.25 Atherosclerosis of native arteries of other extremities with ulceration
CPT/HCPCS: 93000